=== PATIENT | female | born 1985 | race Caucasian/White ===

== ENCOUNTER 2016-12-02 03:40 | Emergency (ER) | payer OTHER ==
[~2016-12-02] VITALS: Ht 149.9 cm; Wt 63.5 kg
--- NOTE | ~2016-12-02 | EKG ---
PATIENT: SINDY NUNEZ UNIT #: [id number] Ventricular Rate: 59 BPM Atrial Rate: 59 BPM P-R Interval: 150 ms QRS Duration: 84 ms Q-T Interval: 434 ms QTC Calculation(Bezet): 429 ms P [place]: 47 degrees Calculated R [place]: 48 degrees Calculated T [place]: 46 degrees Diagnosis Line: Sinus bradycardia Diagnosis Line: Otherwise normal ECG Diagnosis Line: No previous ECGs available Diagnosis Line: Confirmed by FLORES JENSEN MD ([id number]) on Diagnosis Line: 12/03/2016 11:19:28 AM INTERPRETING MD: CAMILA MORA
--- NOTE | ~2016-12-02 | CT16 ---
[facility] A Service of [facility] RADIOLOGY TEXT RESULTS PATIENT: SINDY NUNEZ LOCATION: SED : 89 UNIT #: [id number] AGE: [address]: Kennedy Melgar MD SEX: F ORDER DR: [id number] [address] [address] [id number] MR#: [id number] #: [id number] NAME: SINDY NUNEZ : 1985 SEX: F STUDY DATE/TIME: 12/02/2016 5:40 UNIT: SED ROOM: STUDY DESCRIPTION: CT Angio Chest for PE Attending Physician: Kennedy Melgar M.D. Ordering Physician: Kennedy Melgar M.D. Primary Care Physician: No Primary Care Physician MEDICAL IMAGING REPORT This report is preliminary unless electronic signature is present. EXAM CT chest with contrast with CT angiography. HISTORY Elevated D-dimer with back pain beginning last evening. Factor 5 deficiency. TECHNIQUE Axial images were obtained through chest with contrast. 100 mL of Isovue was used. CT angiography was performed with thick sliding MIPs in the sagittal and coronal projections. This CT exam was performed with one or more of the following radiation dose reduction techniques: Automatic exposure control, adjustment of mA and/or kV according to patient size, and iterative reconstruction. COMPARISON STUDIES 01/29/2016 FINDINGS Chest images at mediastinal window show no pulmonary artery filling defects to suggest emboli. There are no enlarged mediastinal or hilar lymph nodes. There is no evidence of pleural or pericardial fluid. The gallbladder wall is mildly thickened and faintly calcified. No calcified gallstones are seen. This is unchanged from the previous examination. The CT angiographic images also show no evidence of emboli. Images at lung window show both lungs to be clear. IMPRESSION No evidence of pulmonary embolism. The gallbladder wall is mildly thickened and faintly calcified unchanged from the previous examination. No evidence of acute cholecystitis radiographically. [facility] A Service of [facility] RADIOLOGY TEXT RESULTS PATIENT: SINDY NUNEZ [place]ATION[place] [facility] [place] [birth year] UNIT #: [id number] AGE: [address]: Kennedy Melgar MD SEX: F ORDER DR: Dictated by... Jose Garcia M.D. THIS IS AN ELECTRONICALLY VERIFIED REPORT Jose Garcia M.D. at 12/02/2016 3:42 PM RLF/bart TD: 12/02/2016 08:18 JOB #: [id number] MEDICAL IMAGING REPORT Page 1 of 1
[~2016-12-02 03:40] MED LIST: CIPROFLOXACIN500 M1 PO; FIORICET1 TAB PO; FLEXERIL PO; HYDROCHLOROTHIA25 MG PO; LISINOPRIL-HCTZ1 T19; MEDROL PO; PRENATAL1 TA1 PO; ZANTAC150 M1 PO; ZOLOFT
[2016-12-02 04:08] LABS: URINE SOURCE CLEAN CATCH
[2016-12-02 04:10] LABS: URINE APPEARANCE CLEAR; URINE BILIRUBIN NEG (NEG); URINE BLOOD NEG (NEG); URINE COLOR YELLOW; URINE GLUCOSE NEG (NORM); URINE KETONE NEG (NEG); URINE LEUKOCYTE ESTERASE NEG (NEG); URINE NITRATE NEG (NEG); URINE PROTEIN NEG (NEG); URINE SPECIFIC GRAVITY >=1.030 (1.003-1.035); URINE UROBILINOGEN 0.2 MG/DL (NORM)
[2016-12-02 04:11] LABS: MICRO INDICATED? NO
[2016-12-02 04:53] LABS: BASOPHIL# 0.1 X10e3 (0-0.3); BASOPHIL% 0.4 % (0-2.5); EOSINOPHIL# 0.7 X10e3 (0-0.7); EOSINOPHIL% 4.6 % (0.0-7.0); HEMATOCRIT 43.5 % (35.0-45.0); HEMOGLOBIN 14.5 gm/dL (12.0-16.0); LYMPHOCYTE# 2.4 X10e3 (1.0-3.5); MEAN CORPUSCULAR HEMOGLOBIN 30.1 PG (28-34); MEAN CORPUSCULAR HGB CONC 33.4 g/dL (30-36); MEAN PLATELET VOLUME 10.5 FL (6.5-11.5); MONOCYTE# 0.7 X10e3 (0-1.0); NEUTROPHIL# 10.4 X10e3 (1.5-7.1); PLATELET COUNT 282 X10e3 (140-420); RED BLOOD COUNT 4.83 X10e (3.90-5.30); RED CELL DISTRIBUTION WIDTH 14.1 % (11.0-15.5); WHITE BLOOD COUNT 14.3 X10e3 (4.0-10.5)
[2016-12-02 04:54] LABS: INR 0.9; PROTHROMBIN TIME (PATIENT) 10.3 SECONDS (9.5-12.4)
[2016-12-02 05:01] LABS: DIFF IND NO; PARTIAL THROMBOPLASTIN TIME 21.3 SECONDS (25.6-38.1)
[2016-12-02 05:02] LABS: BUN/CREATININE RATIO 13.75; CALCIUM SERUM 8.9 mg/dL (8.4-10.2); CREATININE SERUM 0.8 mg/dL (0.6-1.4); GLOM FILT RATE Estimated 99.7 mL/min (>60); POTASSIUM 3.4 mmol/L (3.5-5.1)
[2016-12-02 05:03] LABS: POC - CKMB <1.0 ng/mL (0.0-7.9); POC - MYOGLOBIN 44.2 ng/mL (0.0-169.0); POC - TROPONIN <0.05 ng/mL (<=0.05)
== END 2016-12-02 06:17 | disposition home or self-care (01) ==
LOC: SED 03:40
PROVIDERS: Emergency Medicine
DX: R10.9 Unspecified abdominal pain (principal); Z98.51 Tubal ligation status; F17.200 Nicotine dependence, unspecified, uncomplicated
CPT/HCPCS: 36415; 71275; 80048; 81003; 82553; 83874; 84484; 84703; 85025; 85379; 85610; 85730; 93005; 96361; 96374; 99284; J1885; Q9967